=== PATIENT | male | born 1940 | race Caucasian/White ===

== ENCOUNTER 2018-08-14 08:11 | Day surgery (SDC) | payer OTHER, BC ==
[2018-08-08 11:10] VITALS: BMI 26.0
[2018-08-14] MEDS: CIPROFLOXACIN 0.3% EYE DROPS 5 ML BOTTLE ONE ×3 (08:40→08:50)
[2018-08-14] MEDS: PHENYLEPHRINE 2.5% OPHTH SOLN 15 ML BOTTLE ONE ×3 (08:40→08:50)
[2018-08-14] MEDS: TROPICAMIDE 1% OPHTH SOLN 15 ML BOTTLE ONE ×3 (08:40→08:50)
[2018-08-14] MEDS: CYCLOPENTOLATE 2% OPHTH SOLN 2 ML BOTTLE ONE ×3 (08:40→08:50)
[2018-08-14] MEDS ORDERED: CARBACHOL 0.01% INTRA-OCULAR 1.5 ML VIAL ONE (08:47)
[2018-08-14] MEDS ORDERED: LIDOCAINE 1% P/F 10 MG/ML VIAL ONE (08:47)
[2018-08-14] MEDS ORDERED: BSS (NA/CA/MG/K) BALANCED SALT SOLUTION OPHTH SOLN 15 ML BOTTLE ONE (08:47)
[2018-08-14] MEDS ORDERED: TETRACAINE 0.5% OPHTH SOLN 2 ML BOTTLE ONE (08:47)
[2018-08-14] MEDS ORDERED: NEO/POLYMYX B SULF/DEXAMETH OPHTHALMIC 5ML BOTTLE ONE (08:48)
[2018-08-14] MEDS ORDERED: MIDAZOLAM HCL 2 MG/2 ML SINGLE DOSE VIAL ONE ×2 (10:06→10:31)
--- NOTE | 2018-08-14 11:07 | OP ---
DATE OF OPERATION: 08/14/2018 OPERATIVE PROCEDURE: Lens phacoemulsification with posterior chamber intraocular lens placement, right eye. PREOPERATIVE DIAGNOSIS: Visually significant cataract of right eye. POSTOPERATIVE DIAGNOSIS: Visually significant cataract of right eye. SURGEON: Justin Brandon MD ANESTHESIA: MAC. PROCEDURE: The patient was brought to the operating room and placed under monitored anesthesia care by Anesthesia. A drop of tetracaine was then placed over the right eye. The patient was then prepped and draped in the usual sterile manner. A speculum was then placed over the right eye. The eye was then well irrigated with copious amounts of BSS (balanced salt solution). The operating microscope was then moved into position. A paracentesis was performed using a 15-degree blade. At this point 0.5 mL of 1% preservative-free lidocaine was injected into the anterior chamber. Amvisc Plus was then injected into the anterior chamber. A clear corneal incision was then formed using a 2.2-mm keratome. A capsulorrhexis was then performed in a continuous circular fashion beginning with a cystotome completed with an Utratas forceps. Hydrodissection was then performed using BSS on a cannula. The phaco probe was then introduced through the corneal wound and the cataract was removed using the phaco chop technique. Approximately 3 seconds of absolute phaco time was used. The remaining cortex was then removed using irrigation and aspiration with an I/A probe. he capsule was then filled with regular Amvisc and the capsule was noted to be intact. A previously selected foldable posterior chamber intraocular lens was then injected into the capsule through the corneal wound using a lens injector. It was then dialed into position using a Sinskey hook. The Amvisc was then removed using irrigation and aspiration. Miostat was then injected through the paracentesis to constrict the pupil. The paracentesis and corneal wound were then hydrated and noted to be watertight. A drop of Maxitrol was then placed over the eye. The speculum was removed and clear shield was taped over the eye. The patient tolerated the procedure well and there were no surgical complications. The patient was asked to follow up in my office the next day. JUSTIN BRANDON M.D. [id number]
[2018-08-14 11:32] VITALS: BP 145/64; PULSE 63; TEMP 98
[2018-08-14] MEDS ORDERED: ACETAMINOPHEN 325 MG TABLET (FP) PO PRN (13:11)
[2018-08-14] MEDS ORDERED: ONDANSETRON 4 MG/2 ML VIAL IVPUSH PRN (13:11)
[2018-08-14] MEDS ORDERED: LACTATED RINGERS SOLUTION 1,000 ML IV SCH (13:15)
== END 2018-08-14 11:35 | disposition home or self-care (01) ==
LOC: FASU 08:11
PROVIDERS: ATTEND Ophthalmology
PROC: 08RJ3JZ Replacement of Right Lens with Synthetic Substitute, Percutaneous Approach (ICD-10-PCS; principal; 2018-08-14 10:31)
DX: H26.8 Other specified cataract (principal)
CPT/HCPCS: 82962

== ENCOUNTER 2018-08-28 08:07 | Day surgery (SDC) | payer OTHER, BC ==
[2018-08-22 15:25] VITALS: BMI 25.4
[2018-08-28] MEDS: TROPICAMIDE 1% OPHTH SOLN 15 ML BOTTLE ONE ×3 (08:50→09:00)
[2018-08-28] MEDS: CYCLOPENTOLATE 2% OPHTH SOLN 2 ML BOTTLE ONE ×3 (08:50→09:00)
[2018-08-28] MEDS: CIPROFLOXACIN 0.3% EYE DROPS 5 ML BOTTLE ONE ×3 (08:50→09:00)
[2018-08-28] MEDS: PHENYLEPHRINE 2.5% OPHTH SOLN 15 ML BOTTLE ONE ×3 (08:50→09:00)
[2018-08-28] MEDS ORDERED: BSS (NA/CA/MG/K) BALANCED SALT SOLUTION OPHTH SOLN 15 ML BOTTLE ONE (10:26)
[2018-08-28] MEDS ORDERED: CARBACHOL 0.01% INTRA-OCULAR 1.5 ML VIAL ONE (10:27)
[2018-08-28] MEDS ORDERED: TETRACAINE 0.5% OPHTH SOLN 2 ML BOTTLE ONE (10:37)
[2018-08-28] MEDS ORDERED: MIDAZOLAM HCL 2 MG/2 ML SINGLE DOSE VIAL ONE ×2 (10:50→10:53)
[2018-08-28 11:40] VITALS: TEMP 97.8
[2018-08-28 12:02] VITALS: BP 122/78; PULSE 65
--- NOTE | 2018-08-28 12:55 | OP ---
DATE OF OPERATION: 08/28/2018 OPERATIVE PROCEDURE: Lens Phacoemulsification with Posterior Chamber Intraocular Lens Placement Left Eye PREOPERATIVE DIAGNOSIS: Visually Significant Cataract of Left Eye POSTOPERATIVE DIAGNOSIS: Visually Significant Cataract of Left Eye SURGEON: Justin Brandon M.D. ANESTHESIA: MAC PROCEDURE: The patient was brought to the operating room and placed under monitored anesthesia care by Anesthesia. A drop of Tetracaine was then placed over the left eye. The patient was then prepped and draped in the usual sterile manner. A speculum was then placed over the left eye. The eye was then well irrigated with copious amounts of BSS (balanced salt solution). The operating microscope was then moved into position. A paracentesis was performed using a 15 degree blade. At this point 0.5 mL of 1% preservative-free lidocaine was injected into the anterior chamber. Amvisc plus was then injected into the anterior chamber. A clear corneal incision was then formed using a 2.2 mm keratome. A capsulorrhexis was then performed in a continuous circular fashion beginning with a cystotome, completed with an Utratas forceps. Hydrodissection was then performed using BSS on a cannula. The phaco probe was then introduced through the corneal wound and the cataract was removed using the phaco chop technique. Approximately 3 seconds of absolute phaco time was used. The remaining cortex was then removed using irrigation and aspiration with an I/A probe. The capsule was then filled with regular Amvisc and the capsule was noted to be intact. A previously selected foldable posterior chamber intraocular lens was then injected into the capsule through the corneal wound using a lens injector. It was then dialed into position using a Sinskey hook. The Amvisc was then removed using irrigation and aspiration. Miostat was then injected through the paracentesis to constrict the pupil. The paracentesis and corneal wound were then hydrated and noted to be water tight. A drop of Maxitrol was then placed over the eye. The speculum was removed and clear shield was taped over the eye. The patient tolerated the procedure well and there were no surgical complications. The patient was asked to follow up in my office the next day. JUSTIN BRANDON M.D. [id number]
== END 2018-08-28 12:05 | disposition home or self-care (01) ==
LOC: FASU 08:07
PROVIDERS: ATTEND Ophthalmology
PROC: 08RK3JZ Replacement of Left Lens with Synthetic Substitute, Percutaneous Approach (ICD-10-PCS; principal; 2018-08-28 10:54)
DX: H26.8 Other specified cataract (principal)
CPT/HCPCS: 82962

== ENCOUNTER 2023-09-14 16:58 | Inpatient (IN) | payer OTHER, BC ==
[2023-09-14 18:33] LABS: EOS % 4.7 % (0-4.5); HEMATOCRIT 29.5 % (35.4-49); LYMPH % 33.8 % (8-40); MCH 32.8 pg (25.7-33.7); MEAN CELL VOLUME 96.5 fl (80-96); MEAN PLT VOLUME 8.9 fl (7.5-11.1); MONO % 4.6 % (3.8-10.2); NEUT % 55.9 % (42.8-82.8); PLATELET COUNT 189 10^3/uL (134-434); RBC 3.06 M/mm3 (4.00-5.60); RDW 12.5 % (11.9-15.9); WHITE BLOOD COUNT 8.6 K/mm3 (4.0-10.0)
[2023-09-14 18:42] LABS: VENOUS BASE EXCESS -4.8 mmol/L (-2-2); VENOUS O2 SATURATION 79.3 % (70-80); VENOUS PCO2 39.9 mmHg (38-52); VENOUS PH 7.331 (7.310-7.410)
[2023-09-14 19:00] LABS: CHLORIDE 98 mmol/L (98-107); POTASSIUM 4.7 mmol/L (3.5-5.1); SODIUM 133 mmol/L (136-145)
[2023-09-14 19:02] LABS: ANION GAP 13 mmol/L (4-13); BLOOD UREA NITROGEN 66.4 mg/dL (7-18); CALCIUM 9.6 mg/dL (8.5-10.1); CO2 22 mmol/L (21-32); LIPASE 83 U/L (73-393)
[2023-09-14 19:03] LABS: ALBUMIN 3.6 g/dl (3.4-5.0)
[2023-09-14 19:05] LABS: SGOT/AST 15 U/L (15-37); SGPT/ALT 23 U/L (13-61)
[2023-09-14 19:07] LABS: BILIRUBIN,TOTAL 0.4 mg/dL (0.2-1); TOT PROT 6.5 g/dl (6.4-8.2)
[2023-09-14 19:08] LABS: ALK PHOS 104 U/L (45-117)
[2023-09-14 19:10] LABS: N-TERMINAL BNP 239.1 pg/ml (5-450)
[2023-09-14 19:11] LABS: GLUCOSE,RANDOM 522 mg/dL (74-106)
[2023-09-14 19:12] LABS: PH,URINE 5.5 (5.0-8.0); URINE APPEARANCE CLEAR; URINE BILIRUBIN NEGATIVE (NEGATIVE); URINE COLOR YELLOW; URINE GLUCOSE (UA) 3+ (NEGATIVE); URINE KETONE TRACE (NEGATIVE); URINE LEUK ESTERASE NEGATIVE (NEGATIVE); URINE NITRITE NEGATIVE (NEGATIVE); URINE PROTEIN NEGATIVE (NEGATIVE); URINE UROBILINOGEN 0.2 mg/dL (0.2-1.0)
[2023-09-14] MEDS ORDERED: SODIUM CHLORIDE 0.9% 500 ML INFUS.BAG IV ONE ×2 (19:13→19:47)
[2023-09-14] MEDS: KCL 10 MEQ IVPB 10 MEQ/100 ML INFUS.BAG IVPB SCH ×2 (19:50→20:53)
[2023-09-14] MEDS ORDERED: POTASSIUM CHLORIDE ORAL LIQUID 20 MEQ/15 ML PO ONE ×2 (20:26→20:28)
[2023-09-14] MEDS ORDERED: MAGNESIUM SULF 50% (8.12 MEQ/2 ML-1 GM VIAL) IVPB ONE (20:35)
[2023-09-14] MEDS ORDERED: POTASSIUM CHLORIDE ORAL LIQUID 20 MEQ/15 ML ONE (20:40)
[2023-09-14] MEDS ORDERED: MAGNESIUM 1GM/D5W - 1 GM/100 ML IVPB IVPB ONE (20:40)
[2023-09-14] MEDS ORDERED: INSULIN REGULAR HUMAN 100 UNITS/ML *VIAL SQ ONE (20:42)
[2023-09-14] MEDS ORDERED: INSULIN REGULAR HUMAN 100 UNITS/ML *VIAL ONE (23:31)
[2023-09-14] MEDS: INSULIN SLIDING SCALE (NOVOLOG) 1 VIAL SQ SCH (23:47)
[2023-09-15 01:46] LABS: MAGNESIUM 2.3 mg/dL (1.8-2.4)
[2023-09-15 01:50] LABS: PHOSPHOROUS 5.4 mg/dL (2.5-4.9)
[2023-09-15 03:14] VITALS: BMI 22.6
[2023-09-15] MEDS: LEVOTHYROXINE NA 25 MCG TABLET (FP) PO SCH (06:43)
[2023-09-15] MEDS: HEPARIN NA (PORCINE) 5,000 UNITS/ML 1ML VIAL SQ SCH ×3 (06:43→21:29)
[2023-09-15] MEDS ORDERED: INSULIN (NOVOLOG) ASPART 100 UNITS/ML 10ML VIAL ONE ×4 (06:49→21:18)
[2023-09-15] MEDS: INSULIN SLIDING SCALE (NOVOLOG) 1 VIAL SQ SCH ×4 (07:23→21:30)
[2023-09-15 08:33] LABS: BASO % 0.9 % (0-2.0); HEMATOCRIT 25.6 % (35.4-49); HEMOGLOBIN 8.9 GM/dL (11.7-16.9); LYMPH % 33.8 % (8-40); MCH 33.7 pg (25.7-33.7); MCHC 34.9 g/dl (32.0-35.9); MEAN CELL VOLUME 96.5 fl (80-96); MEAN PLT VOLUME 8.7 fl (7.5-11.1); MONO % 4.7 % (3.8-10.2); NEUT % 53.6 % (42.8-82.8); PLATELET COUNT 180 10^3/uL (134-434); RBC 2.65 M/mm3 (4.00-5.60); RDW 12.2 % (11.9-15.9); WHITE BLOOD COUNT 7.6 K/mm3 (4.0-10.0)
[2023-09-15 08:47] LABS: POTASSIUM 4.1 mmol/L (3.5-5.1)
[2023-09-15 08:49] LABS: ALBUMIN 3.1 g/dl (3.4-5.0); BLOOD UREA NITROGEN 62.2 mg/dL (7-18); CALCIUM 8.8 mg/dL (8.5-10.1); MAGNESIUM 2.5 mg/dL (1.8-2.4)
[2023-09-15 08:52] LABS: CREATININE 3.9 mg/dL (0.55-1.3); PHOSPHOROUS 4.1 mg/dL (2.5-4.9)
[2023-09-15 08:54] LABS: BILIRUBIN,TOTAL 0.3 mg/dL (0.2-1); TOT PROT 5.5 g/dl (6.4-8.2)
[2023-09-15] MEDS: MULTIVITAMINS (DAILY MVI) TABLET (FP) PO SCH (09:12)
[2023-09-15] MEDS: NIFEdipine E.R. 30 MG TABLET PO SCH (09:12)
[2023-09-15] MEDS: FOLIC ACID 1 MG TABLET (FP) PO SCH (09:12)
[2023-09-15] MEDS: CARVEDILOL 12.5 MG TABLET (FP) PO SCH ×2 (09:12→21:31)
[2023-09-15] MEDS: ASPIRIN COATED 81 MG TABLET.EC PO SCH (09:12)
[2023-09-15] MEDS ORDERED: LOSARTAN POTASSIUM 50 MG TABLET PO SCH (10:00)
[2023-09-15] MEDS: POLYETHYLENE GLYCOL (HEALTHYLAX) 3350 17 GM PACKET PO SCH ×2 (14:31→21:31)
[2023-09-15 14:41] VITALS: RESP 18
[2023-09-15] MEDS: SODIUM CHLORIDE 0.45% 1,000 ML IV SCH (15:31)
[2023-09-15] MEDS ORDERED: INSULIN (LEVEMIR) 100 UNITS/ML UNITS SQ SCH (22:00)
[2023-09-15] MEDS ORDERED: ATORVASTATIN CA 40 MG TABLET (FP) PO SCH (22:00)
[2023-09-15] MEDS ORDERED: DOCUSATE SODIUM 100 MG CAPSULE (FP) PO SCH (22:00)
[2023-09-16] MEDS: SODIUM CHLORIDE 0.45% 1,000 ML IV SCH (04:50)
[2023-09-16] MEDS: HEPARIN NA (PORCINE) 5,000 UNITS/ML 1ML VIAL SQ SCH (05:47)
[2023-09-16] MEDS: INSULIN SLIDING SCALE (NOVOLOG) 1 VIAL SQ SCH ×2 (06:54→11:45)
[2023-09-16] MEDS: LEVOTHYROXINE NA 25 MCG TABLET (FP) PO SCH (06:55)
[2023-09-16 08:38] LABS: POTASSIUM 4.3 mmol/L (3.5-5.1)
[2023-09-16 08:46] LABS: CREATININE 3.8 mg/dL (0.55-1.3)
[2023-09-16 08:47] LABS: ALBUMIN 2.9 g/dl (3.4-5.0); BLOOD UREA NITROGEN 59.4 mg/dL (7-18)
[2023-09-16 08:48] LABS: BILIRUBIN,TOTAL 0.2 mg/dL (0.2-1); TOT PROT 5.2 g/dl (6.4-8.2)
[2023-09-16 08:50] LABS: CALCIUM 8.5 mg/dL (8.5-10.1)
[2023-09-16 08:51] LABS: MAGNESIUM 2.4 mg/dL (1.8-2.4)
[2023-09-16 09:02] LABS: EOS % 5.9 % (0-4.5); HEMATOCRIT 25.5 % (35.4-49); HEMOGLOBIN 8.5 GM/dL (11.7-16.9); MCH 32.9 pg (25.7-33.7); MCHC 33.2 g/dl (32.0-35.9); MONO % 4.6 % (3.8-10.2); NEUT % 37.5 % (42.8-82.8); PLATELET COUNT 187 10^3/uL (134-434); RBC 2.58 M/mm3 (4.00-5.60); RDW 12.4 % (11.9-15.9); WHITE BLOOD COUNT 8.5 K/mm3 (4.0-10.0)
[2023-09-16 09:27] VITALS: BP 147/84; PULSE 66; TEMP 98
[2023-09-16] MEDS: MULTIVITAMINS (DAILY MVI) TABLET (FP) PO SCH (09:59)
[2023-09-16] MEDS: FOLIC ACID 1 MG TABLET (FP) PO SCH (09:59)
[2023-09-16] MEDS: ASPIRIN COATED 81 MG TABLET.EC PO SCH (09:59)
[2023-09-16] MEDS: CARVEDILOL 12.5 MG TABLET (FP) PO SCH (09:59)
[2023-09-16] MEDS: NIFEdipine E.R. 30 MG TABLET PO SCH (09:59)
[2023-09-16] MEDS: POLYETHYLENE GLYCOL (HEALTHYLAX) 3350 17 GM PACKET PO SCH (10:00)
== END 2023-09-16 12:40 | disposition home or self-care (01) | DRG 638 ==
LOC: JER 16:58 → JERBED 20:16 → J8W 09-15 02:08
PROVIDERS: ADMIT Internal Medicine; ATTEND Nurse Practitioner Acute Care
DX: E11.65 Type 2 diabetes mellitus with hyperglycemia (principal); E87.1 Hypo-osmolality and hyponatremia; N17.9 Acute kidney failure, unspecified; E03.9 Hypothyroidism, unspecified; I12.9 Hypertensive chronic kidney disease with stage 1 through stage 4 chronic kidney disease, or unspecified chronic kidney disease; E11.22 Type 2 diabetes mellitus with diabetic chronic kidney disease; N18.9 Chronic kidney disease, unspecified; E78.5 Hyperlipidemia, unspecified; K21.9 Gastro-esophageal reflux disease without esophagitis
CPT/HCPCS: 0241U-QW; 36415; 74176-TC; 74181-TC; 76775-TC; 80053; 81003; 82010; 82306; 82550; 82610; 82728; 82784; 82803; 82962; 83516; 83520; 83540; 83550; 83605; 83690; 83735; 83880; 83883; 83930; 83970; 84100; 84155; 84165; 84484; 85025; 86256; 86803; 87340; 87389; 87517; 93005; 93010; 99285-25; J1644

== ENCOUNTER 2024-04-25 04:27 | Day surgery (SDC) | payer OTHER, BC ==
[2024-04-22 14:37] VITALS: BMI 23.8
[2024-04-25] MEDS ORDERED: LIDOCAINE HCL 1%, 10 MG/ML (20ML VIAL) ONE (13:30)
[2024-04-25] MEDS ORDERED: POVIDONE-IODINE OINTMENT 10% - 28.4 GM TUBE ONE (13:30)
[2024-04-25] MEDS ORDERED: HEPARIN NA (PORCINE) 5,000 UNITS/ML 1ML VIAL ONE (13:31)
[2024-04-25] MEDS ORDERED: PAPAVERINE HCL 30 MG/1 ML 10 ML VIAL NR ONE (13:31)
[2024-04-25] MEDS ORDERED: DEXMEDETOMIDINE HCL 200 MCG/2 ML IVPB ONE (15:45)
[2024-04-25] MEDS ORDERED: PROPOFOL 20 ML ONE (15:46)
[2024-04-25] MEDS ORDERED: LIDOCAINE HCL/PF 2% SDV 5ML VIAL ONE (15:46)
[2024-04-25] MEDS ORDERED: FENTANYL CITRATE/PF 50 MCG/ML VIAL ONE (15:46)
[2024-04-25] MEDS ORDERED: MIDAZOLAM HCL 2 MG/2 ML SINGLE DOSE VIAL ONE (15:46)
[2024-04-25] MEDS ORDERED: ceFAZolin SODIUM 1 GM VIAL ONE (16:00)
[2024-04-25] MEDS: ceFAZolin SODIUM 1 GM VIAL IVPB ONE (16:05)
[2024-04-25] MEDS: LIDOCAINE HCL 1%, 10 MG/ML (20ML VIAL) INF ONE ×3 (16:11)
[2024-04-25] MEDS ORDERED: ONDANSETRON 4 MG/2 ML VIAL ONE (17:00)
[2024-04-25] MEDS ORDERED: KETOROLAC TROMETHAMINE 30 MG/1 ML VIAL ONE (17:00)
[2024-04-25] MEDS ORDERED: SODIUM CHLORIDE 1,000 ML IV SCH (17:30)
[2024-04-25 18:40] VITALS: RESP 16
[2024-04-25 19:40] VITALS: BP 120/66; PULSE 57; TEMP 97.2
== END 2024-04-25 19:25 | disposition home or self-care (01) ==
LOC: JASU-SURG 04:27
PROVIDERS: ATTEND Surgery
PROC: 03180ZD Bypass Left Brachial Artery to Upper Arm Vein, Open Approach (ICD-10-PCS; principal; 2024-04-25 15:30)
DX: E11.22 Type 2 diabetes mellitus with diabetic chronic kidney disease (principal); N18.6 End stage renal disease; Z99.2 Dependence on renal dialysis
CPT/HCPCS: 82962; 94760; J1644

== ENCOUNTER 2024-06-25 04:26 | Day surgery (SDC) | payer OTHER, BC ==
[2024-06-23 15:45] VITALS: BMI 25.0
[2024-06-25] MEDS ORDERED: LIDOCAINE HCL 1%, 10 MG/ML (20ML VIAL) ONE (07:40)
[2024-06-25] MEDS ORDERED: PAPAVERINE HCL 30 MG/1 ML 10 ML VIAL NR ONE (07:40)
[2024-06-25] MEDS ORDERED: POVIDONE-IODINE OINTMENT 10% - 28.4 GM TUBE ONE (07:40)
[2024-06-25] MEDS ORDERED: HEPARIN NA (PORCINE) 5,000 UNITS/ML 1ML VIAL ONE (07:40)
[2024-06-25] MEDS ORDERED: PROPOFOL 40 ML ONE (09:27)
[2024-06-25] MEDS: LIDOCAINE HCL 1%, 10 MG/ML (50 mL VIAL) INF ONE (09:55)
[2024-06-25] MEDS ORDERED: SEVOFLURANE 250 ML BTL ONE (10:13)
[2024-06-25] MEDS ORDERED: oxyCODONE HCL 5 MG TABLET PO PRN (11:54)
[2024-06-25] MEDS ORDERED: ONDANSETRON 4 MG/2 ML VIAL IVPUSH PRN (11:54)
[2024-06-25] MEDS ORDERED: LACTATED RINGERS SOLUTION 1,000 ML IV SCH (12:00)
[2024-06-25] MEDS ORDERED: SUCCINYLCHOLINE CHLORIDE 200 MG/10 ML SYRINGE ONE (12:08)
[2024-06-25 12:38] VITALS: RESP 20
[2024-06-25 14:25] VITALS: BP 148/66; PULSE 60; TEMP 97.3
== END 2024-06-25 14:00 | disposition home or self-care (01) ==
LOC: JASU-SURG 04:26
PROVIDERS: ATTEND Surgery
PROC: 057C0ZZ Dilation of Left Basilic Vein, Open Approach (ICD-10-PCS; 2024-06-25)
PROC: 057 Upper Veins, Dilation (ICD-10-PCS; principal; 2024-06-25 09:00)
DX: I12.0 Hypertensive chronic kidney disease with stage 5 chronic kidney disease or end stage renal disease (principal); E11.22 Type 2 diabetes mellitus with diabetic chronic kidney disease; N18.6 End stage renal disease; Z99.2 Dependence on renal dialysis
CPT/HCPCS: 82962; 94760; J1644